=== PATIENT | female | born 1990 | race Two or more races ===

== ENCOUNTER 2021-05-13 23:16 | Emergency (ER) | payer OTHER ==
[~2021-05-13] VITALS: Ht 175.3 cm; Wt 104.3 kg
[~2021-05-13 23:16] MED LIST: MOTRIN800 MG PO; ORPH100T PO
[2021-05-14] MEDS ORDERED: BENADRYL25 MG PO (04:44)
[2021-05-14] MEDS ORDERED: HYDROCORTISON28.4 G6 TOP (04:44)
== END 2021-05-14 06:43 | disposition home or self-care (01) ==
LOC: ER 23:16
DX: L40.9 Psoriasis, unspecified (principal)

== ENCOUNTER 2022-06-17 10:17 | Inpatient (IN) | payer OTHER ==
[~2022-06-17] VITALS: Ht 175.3 cm; Wt 104.3 kg
[~2022-06-17 10:17] MED LIST changes: +BENADRYL25 MG PO; +HYDROCORTISON28.4 G6 TOP
--- NOTE | 2022-06-17 10:54 | NUR ---
PACIENTE ALERTA Y ORIENTADA EN LAS 3 ESFERAS. REFIERE SENTIR ELLEN DOLOR ABDOMINAL DESDE HOY EN LA MADRUGADA. SE MIDEN SIGNOS VITALES SE UBICA PACIENTE EN AREA DE OBSERVACION.
--- NOTE | 2022-06-17 11:23 | NUR ---
PTE ALERTA,ESTABLE Y ORIENTADA,SE EDUCA SOBRE EL TRATAMIENTO QUE RECIBIRA EN EL HOSPITAL Y ESTA REFIERE ENTENDER.SE LE KARINA MUESTRAS DE DER[facility] Y SE LE ADMINISTRA MEDICAMENTOS CHASITY ORDEN MEDICA
--- NOTE | 2022-06-17 16:01 | NUR ---
PTE ALERTA Y ORIENTADA X 3 ESFERAS EN COMPANIA DE FAMILIAR,AREA DE VENOPUNCION PATENTE Y TOR DE EDEMA CON FLUIDOS DE MANTENIMIENTO BAJANDO SIN DIFICULTAD.PENDIENTE A EVALUACION DE DR MCMANUS.
== END 2022-06-20 11:50 | disposition home or self-care (01) | DRG 419 ==
LOC: ER 10:17 → MEDJ 18:00
PROVIDERS: Specialist; ADMIT Internal Medicine; ATTEND Internal Medicine
PROC: BW40ZZZ Ultrasonography of Abdomen (ICD-10-PCS; 2022-06-17)
PROC: BF13YZZ Fluoroscopy of Gallbladder and Bile Ducts using Other Contrast (ICD-10-PCS; 2022-06-18)
PROC: 0FT44ZZ Resection of Gallbladder, Percutaneous Endoscopic Approach (ICD-10-PCS; principal; 2022-06-18 08:00)
DX: K80.10 Calculus of gallbladder with chronic cholecystitis without obstruction (principal); R21 Rash and other nonspecific skin eruption